=== PATIENT | female | born 1975 | race Two or more races ===

== ENCOUNTER 2022-09-24 11:18 | Emergency (ER) | payer MEDICAID ==
[~2022-09-24] VITALS: Ht 167.6 cm; Wt 63.0 kg
[2022-09-24] MEDS ORDERED: MAGNESIUM SULFATE 1GM/100ML 100 ML IV ONE (12:45)
[2022-09-24 12:59] LABS: Urine Blood Negative /uL (Negative); Urine Specific Gravity 1.007 (1.001-1.035)
[2022-09-24 13:07] LABS: Basophils # (auto) 0.1 10 ^3/uL (0-0.2); Basophils % (auto) 1.1 % (0.0-2.0); Eosinophils # (auto) 0.1 10 ^3/uL (0-0.8); Eosinophils % (auto) 0.8 % (0.0-7.0); Lymphocytes # (auto) 2.2 10 ^3/uL (0.4-5.4); Mean Corpuscular Hemoglobin 30.7 pg (28.0-32.0); Mean Corpuscular Hgb Conc. 33.4 g/dL (32.0-36.0); Monocytes # (auto) 0.7 10 ^3/uL (0-1.3); Neutrophils # (auto) 5.7 10 ^3/uL (1.6-8.6); Neutrophils % (auto) 65.1 % (37.0-80.0); Nucleated Red Blood Cells % 0.2 %; Red Blood Cells 4.57 10^6/uL (4.0-5.20); Red Cell Distribution Width 12.9 % (11.8-14.3); White Blood Cell 8.7 10^3/uL (4.4-10.8)
[2022-09-24 13:08] LABS: Urine WBC 8 /hpf (0 - 5)
[2022-09-24 13:09] LABS: Urine Bacteria FEW /hpf (None Seen)
[2022-09-24 13:36] LABS: Albumin 4.3 g/dL (3.4-5.0); Calcium 9.8 mg/dL (8.5-10.1)
[2022-09-24 13:39] LABS: BUN/Creatinine Ratio 20.3; Bilirubin, Total 0.5 mg/dL (0.2-1.0); Total Protein 8.7 g/dL (6.4-8.2)
[2022-09-24] MEDS ORDERED: KETOROLAC TROMETH 30 MG/ML 1ML VIAL IV ONE (17:30)
[2022-09-24 20:33] VITALS: BP 159/86
== END 2022-09-24 20:42 | disposition home or self-care (01) ==
LOC: ER 11:18
DX: G43.909 Migraine, unspecified, not intractable, without status migrainosus (principal); I10 Essential (primary) hypertension; Z90.49 Acquired absence of other specified parts of digestive tract
CPT/HCPCS: 36415; 70450; 71046; 80053; 81001; 84702; 85025; 93005; 96365; 96375; 99285; J1885; J3475

== ENCOUNTER 2023-04-16 17:01 | Emergency (ER) | payer MEDICAID ==
[~2023-04-16] VITALS: Ht 167.6 cm; Wt 64.1 kg
[2023-04-16 17:26] LABS: Basophils # (auto) 0.1 10 ^3/uL (0-0.2); Basophils % (auto) 2.1 % (0.0-2.0); Eosinophils # (auto) 0.1 10 ^3/uL (0-0.8); Eosinophils % (auto) 1.9 % (0.0-7.0); Hematocrit 40.3 % (36.0-46.0); Hemoglobin 13.6 g/dL (12.2-16.2); Lymphocytes # (auto) 2.5 10 ^3/uL (0.4-5.4); Lymphocytes % (auto) 37.9 % (10.0-50.0); Mean Corpuscular Hemoglobin 30.6 pg (28.0-32.0); Mean Corpuscular Hgb Conc. 33.8 g/dL (32.0-36.0); Mean Corpuscular Volume 90.5 fL (80.0-100.0); Monocytes # (auto) 0.6 10 ^3/uL (0-1.3); Monocytes % (auto) 8.6 % (0.0-12.0); Neutrophils # (auto) 3.3 10 ^3/uL (1.6-8.6); Neutrophils % (auto) 49.5 % (37.0-80.0); Nucleated Red Blood Cells % 0.1 %; Red Blood Cells 4.45 10^6/uL (4.0-5.20); Red Cell Distribution Width 12.6 % (11.8-14.3); White Blood Cell 6.6 10^3/uL (4.4-10.8)
[2023-04-16 17:40] LABS: Albumin 4.2 g/dL (3.4-5.0); Calcium 9.7 mg/dL (8.5-10.1)
[2023-04-16 17:43] LABS: BUN/Creatinine Ratio 12.5 (10.0-20.0); Bilirubin, Total 0.2 mg/dL (0.2-1.0); Potassium 3.5 mmol/L (3.5-5.1); Total Protein 8.9 g/dL (6.4-8.2)
[2023-04-16 18:38] VITALS: BP 105/75
== END 2023-04-16 18:41 | disposition home or self-care (01) ==
LOC: ER 17:01
DX: R07.89 Other chest pain (principal); I10 Essential (primary) hypertension; Z90.49 Acquired absence of other specified parts of digestive tract
CPT/HCPCS: 36415; 71046; 80053; 84484; 85025; 93005

== ENCOUNTER 2025-08-09 10:11 | Emergency (ER) | payer MEDICAID ==
[~2025-08-09] VITALS: Ht 167.6 cm; Wt 67.7 kg
--- NOTE | 2025-08-09 10:36 | ED.PDOC ---
History of Present Illness HPI Comments This is a 49-year-old female who comes in with a swelling in her left side of her face. She states it started with a toothache on Sunday she noticed a little bit of swelling and today the swelling has gotten much more.. Denies fever chills nausea vomiting. States that she has been using ice on it thinking that was going to help it but the redness and swelling continued. She has been taking Motrin at home. She tried calling her dentist yesterday and will call again tomorrow for evaluation and follow up appointment. Chief Complaint: Face pain Time Seen by MD: 10:31 Primary Care Provider: MANJU Reviewed Notes: Nurses Notes, Medications, Allergies Allergies: Coded Allergies: NO KNOWN ALLERGIES (Unverified , 09/24/22) Information Source: Patient Mode of Arrival: Ambulatory Past Medical History PAST MEDICAL HISTORY: Arthritis, HTN, Denies Surgical History: Cholecystectomy, RN UROLOGY History: Denies all RN UROLOGY Hx, Unknown Family History Family History: Reviewed,noncontributory to illness, Family hx of DM, Family hx of Cancer, Family hx of heart josé miguel, Family hx of Kidney josé miguel Social History Smoker: Non-Smoker Alcohol: Occasionally Drugs: Denies Drug Use Lives In: Unknown EENTM: reports: mouth pain, mouth swelling, others (Toothache left side) All Other Systems: Reviewed and Negative Physical Exam General Appearance: No Apparent Distress, Normal HEENT: PERRL/EOMI, Pharynx Normal, TMs Normal, Other (Left side of face and swollen with erythema no induration no fluctuance noted. Both left sided upper molar and left-sided lower molar with obvious decay and swelling to the tissue) Neck: Normal, Normal Inspection, Supple Respiratory: Lungs Clear, No Respiratory Distress, Normal Breath Sounds Cardiovascular: Regular Rate/Rhythm Breast Exam: Deferred Gastrointestinal: Non Tender, Soft Genitalia: Deferred Pelvic: Deferred Rectal: Deferred Extremities: Normal capillary refill, Normal inspection, Normal range of motion Neurologic: Alert, No Motor Deficits, Normal Mood Cerebellar Function: Normal Reflexes: NOT DONE Skin: Dry, Warm Lymphatic: Cervical Adenopathy (L) Was a procedure done? Was a procedure done?: No Differential Dx Considerations may include: Facial abscess versus cellulitis X-Ray, Labs, Meds, VS Vital Signs Date Time Temp Pulse Resp B/P (MAP) Pulse Ox O2 Delivery O2 Flow Rate FiO2 08/09/25 11:00 98.2 68 18 117/78 (91) 99 98.2 08/09/25 11:00 68 18 99 Room Air 08/09/25 10:13 97.9 81 14 130/92 98 97.9 X-Ray, Labs, Meds, VS Comment Patient seen and examined by me. Patient does have tooth decay that is causing facial cellulitis on the left side of the face. She will make an appointment with her dentist later this week. She has been taking Motrin at home with good success. Swelling has not per improved. I will give her a dose of Rocephin 1 g IM here and send her home with oral antibiotics.. I stressed the importance of following up with a dentist and taking all the antibiotics as directed as she could become septic from a facial infection and gingivitis. Time of 1ST Reevaluation: 11:46 Reevaluation 1ST: Unchanged Patient Education/Counseling: Diagnosis, Treatment, Prognosis, Need For Follow Up Family Education/Counseling: No Family Present SEPSIS Sepsis Screen Date sepsis recognized/suspect: Aug 09, 2025 Time Sepsis recognized/suspect: 1015 Recent Procedure: No On Antibiotic Therapy: No Respiratory Rate >20: No Heart Rate >90: No Temp<36 C (96.8 F) or >38.3 C: No SBP <90 or MAP <65 mmHG: No New Acute Mental Status Change: No Is the patient on CPAP, BIPAP,: No Physician Orders Ceftriaxone Sodium (Rocephin) (08/09/25 11:45) Vital Signs Date Time Temp Pulse Resp B/P (MAP) Pulse Ox O2 Delivery O2 Flow Rate FiO2 08/09/25 11:00 98.2 68 18 117/78 (91) 99 98.2 08/09/25 11:00 68 18 99 Room Air 08/09/25 10:13 97.9 81 14 130/92 98 97.9 Departure 1 Departure Time of Disposition: 11:46 Impression: Primary Impression: Cellulitis Additional Impression: Gingivitis Disposition: 01 HOME / SELF CARE / HOMELESS Condition: Good Additional Instructions: Please finish all antibiotics as directed Use the anti-inflammatories as needed for pain Follow up with a dentist as soon as possible this week to have your teeth taking care If you notice increased redness or swelling in your face, you need to return to the ER for IV antibiotics and blood work e-Prescriptions Ibuprofen Micronized (Ibuprofen) 600 Mg Tab 600 MG PO Q6HPRN PRN for 5 Days, #20 TAB Prov: JUDY LONG 08/09/25 Amoxicillin & Pot Clavulanate (AUGMENTIN TABLET) 875 Mg Tb 875 MG PO BID for 10 Days, #20 TAB Prov: JUDY LONG 08/09/25 Discharged With: Self Critical Care Note Critical Care Time?: No Stability Stability form required: No UJDY LONG Aug 09, 2025 10:36
[2025-08-09] MEDS: cefTRIAXone W LIDOCAINE 1 GM IM IM ONE (10:45)
[2025-08-09 11:00] VITALS: BP 117/78; PULSE 68; RESP 18; TEMP 98.2; O2SAT 99
[2025-08-09] MEDS ORDERED: AUG875T PO (11:48)
[2025-08-09] MEDS ORDERED: IBUP1TAB5 PO (11:48)
[2025-08-09] MEDS: cefTRIAXone SOD 1,000 MG VL IM ONE (11:52)
== END 2025-08-09 11:56 | disposition home or self-care (01) ==
LOC: ER 10:11
DX: L03.211 Cellulitis of face (principal); K05.10 Chronic gingivitis, plaque induced; I10 Essential (primary) hypertension; Z90.49 Acquired absence of other specified parts of digestive tract
CPT/HCPCS: 96372; 99283; J0696